=== PATIENT | female | born 1950 | race Caucasian/White ===

== ENCOUNTER → 2019-04-26 14:05 | Outpatient (CLI) | payer MEDICARE, MEDICAID, SELFPAY ==
[2019-04-26 14:34] LABS: International Normalized Ratio 2.5; Prothrombin Time (Protime)PT. 27.1 SECONDS (11.7-14.9)
== END ==
PROVIDERS: Family Provider Family Medicine; PCP Family Medicine; Referring Provider Family Medicine; Visit Provider Family Medicine
DX: D68.59 Other primary thrombophilia (principal)
CPT/HCPCS: 85610

== ENCOUNTER → 2019-07-14 14:41 | Outpatient (CLI) | payer MEDICARE, MEDICAID, SELFPAY ==
[2019-07-14 15:01] LABS: International Normalized Ratio 2.6; Prothrombin Time (Protime)PT. 28.2 SECONDS (11.7-14.9)
== END ==
PROVIDERS: Family Provider Family Medicine; PCP Family Medicine; Referring Provider Family Medicine; Visit Provider Family Medicine
DX: D68.59 Other primary thrombophilia (principal)
CPT/HCPCS: 85610

== ENCOUNTER → 2023-09-29 | Outpatient (CLI) | payer MEDICARE, MEDICAID, SELFPAY ==
--- NOTE | 2023-09-29 15:20 | MRI_ITS ---
STUDY: MRI TEMPOROMANDIBULAR JOINTS REASON FOR EXAM: Female, 73 years old. DIFFICULTY OPENING MOUTH, TMJ PAIN- LEFT TECHNIQUE: Standardized fat and water weighted pulse sequences were obtained in all 3 orthogonal planes. COMPARISON: None. FINDINGS: Left TMJ: In the closed-mouth position, the left mandibular condyle is normally positioned in the mandibular fossa. Flattening deformity of the left condylar head. Marked atrophy of the anterior displaced meniscus. Collapse of the left TMJ space. There is no demonstrated joint effusion. In the open mouth position, there is normal forward translation of the mandibular condyle which comes to rest under the articular eminence. The atrophic meniscus is difficult to recognize. There may be reduction of the atrophic TMJ meniscus. Right TMJ: In the closed-mouth position, the right mandibular condyle is normally positioned in the mandibular fossa. Khloe right mandibular condyle. Normal meniscus. Normal relationship of the meniscus to the mandibular condyle. There is no demonstrated joint effusion. In the open mouth position, there is normal forward translation of the mandibular condyle which comes to rest under the articular eminence. The meniscus maintains its normal relationship with the mandibular condyle and articular eminence. MRI/TMJ/Bilat IMPRESSION: 1. 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 Please take note that the anterior displaced meniscus may intermittently reduce and not reduce in the open-mouth positioning. This is best appreciated with dynamic fluoroscopic evaluation on left TMJ arthrogram if desired. 2. Normal right TMJ in open and closed mouth positioning. Electronically Signed: Alber Hutchins MD at 9:00 EST ,
== END | disposition home or self-care (01) ==
LOC: MRI 15:17
PROVIDERS: PCP Family Medicine; Referring Provider Family Medicine; Visit Provider Family Medicine
DX: M26.609 Unspecified temporomandibular joint disorder, unspecified side (principal)
CPT/HCPCS: 70336

== ENCOUNTER → 2023-12-08 | Outpatient (CLI) | payer MEDICARE, SELFPAY ==
[2023-12-08 15:28] LABS: Urine Sodium 10 mmol/L (Not Establ.)
[2023-12-08 15:35] LABS: Albumin, Serum 3.3 g/dL (3.2-5.0); BUN 35 mg/dL (7-18); BUN/Creat Ratio 19.6 RATIO (10-20); Calcium,Total 8.4 mg/dL (8.5-10.1); Chloride 109 mmol/L (98-107); Creatinine, Serum 1.79 mg/dL (0.55-1.02); EST Glomerular Filtration Rate 30 mL/min (>60); Est Glom Filt Rate - Afr Amer 36 mL/min (>60); Glucose 107 mg/dL (74-106); Phosphorus 3.1 mg/dL (2.5-4.9); Potassium 4.6 mmol/L (3.5-5.1); Sodium Level 137 mmol/L (136-145)
== END | disposition home or self-care (01) ==
LOC: POLAB3 14:23
PROVIDERS: PCP Family Medicine; Visit Provider Internal Medicine Nephrology
DX: N17.9 Acute kidney failure, unspecified (principal); N18.32 Chronic kidney disease, stage 3b
CPT/HCPCS: 36415; 80069; 84300